=== PATIENT | female | born 1965 | race Caucasian/White ===

== ENCOUNTER 2022-06-10 15:10 | Emergency (ER) | payer MEDICAID ==
[~2022-06-10] VITALS: Ht 160 cm; Wt 72.7 kg
[2022-06-10 15:50] VITALS: BP 138/96
[2022-06-10] MEDS ORDERED: ondansetron 4mg rapidly disintigrating tab PO ONE (16:20)
[2022-06-10] MEDS ORDERED: LORazepam 1 MG tablet PO ONE (16:20)
[2022-06-10] MEDS ORDERED: ketorolac trometh. 30mg/ml inj. IM ONE (16:20)
[2022-06-10] MEDS ORDERED: buprenorphine/naloxone 8MG-2MG SUBlingual film SL STA (16:25)
--- NOTE | 2022-06-10 16:58 | NUR ---
PT ASKED FOR FOOD AND NO SANDWICHES WERE AVAILABLE, THEREFORE SHE WAS PROVIDED WITH CRACKERS, APPLE SAUCE AND JUICE; OF WHICH WERE NOT TO HER LIKING SO SHE BECAME VERY RUDE WITH STAFF AND THREWA AWAY FOOD.
[2022-06-10] MEDS ORDERED: BUPR1FIL3 SL (17:18)
[2022-06-10] MEDS ORDERED: ONDA4TAB12 PO (17:18)
--- NOTE | 2022-06-12 09:09 | NUR ---
Received referral. Called patient for follow up. Left message for patient to call me back.
== END 2022-06-10 17:27 | disposition home or self-care (01) ==
LOC: ER 15:11
DX: F11.23 Opioid dependence with withdrawal (principal); F41.9 Anxiety disorder, unspecified; R11.0 Nausea; R45.1 Restlessness and agitation; F31.9 Bipolar disorder, unspecified; G89.29 Other chronic pain; F17.200 Nicotine dependence, unspecified, uncomplicated; F12.90 Cannabis use, unspecified, uncomplicated; F15.90 Other stimulant use, unspecified, uncomplicated; F19.90 Other psychoactive substance use, unspecified, uncomplicated; Z86.19 Personal history of other infectious and parasitic diseases; Z90.710 Acquired absence of both cervix and uterus; Z72.89 Other problems related to lifestyle; Z60.2 Problems related to living alone; Z59.00 Homelessness unspecified; Z56.0 Unemployment, unspecified; Z79.899 Other long term (current) drug therapy
CPT/HCPCS: 96372; 99284; J1885